=== PATIENT | male | born 1940 | race Caucasian/White ===

== ENCOUNTER → 2018-08-31 13:49 | Outpatient (CLI) | payer MEDICARE, OTHER, SELFPAY ==
--- NOTE | 2018-08-31 | DI.MRI.S_ITS ---
PROCEDURE: MRFOOT LT WO CON INDICATIONS: Lesion of plantar nerve, left lower limb TECHNIQUE: Noncontrast sagittal T1 spin echo and T2 fast spin echo with fat saturation, long-axis T1 spin echo and T2 fast spin echo with fat saturation, short-axis T1 spin echo and T2 fast spin echo with fat saturation through the forefoot. COMPARISON: None. FINDINGS: Image quality: Excellent. Bones and joints: Severe osteoarthritic changes involving second MTP joint with complete loss of joint space, extensive subchondral sclerosis and cyst formation. There is also suggestion of bony erosive changes within the joint suspicious for erosive osteoarthritis. Mild osteoarthritic changes are noted throughout rest of the foot and forefoot joints. No other area of bony erosive changes are seen. The sesamoid bones appear in expected positions, without internal edema. No metatarsophalangeal joint degeneration. No intraosseous lesions. Soft tissues: The visualized plantar foot muscles demonstrate normal signal and bulk. Visualized flexor and extensor tendons appear intact, without tenosynovitis. The distal insertions of the peroneus brevis and longus tendons appear intact. The principal Lisfranc ligament appears intact. No soft tissue ganglion cysts or bursal fluid collections. Sagittal images demonstrate no evidence for plantar plate tears. IMPRESSION: 1. 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 Mild to moderate osteoarthritic changes in rest of mid foot and forefoot. 2. No discrete soft tissue mass or fluid collection. Focal tendons and ligaments are grossly intact. Dictated by: Erasmo Ho M.D. on 08/31/2018 at 15:24 Approved by: Erasmo Ho M.D. on 08/31/2018 at 15:32
== END ==
PROVIDERS: PCP Family Medicine; Visit Provider Family Medicine
DX: G57.62 Lesion of plantar nerve, left lower limb (principal); M19.072 Primary osteoarthritis, left ankle and foot
CPT/HCPCS: 73718

== ENCOUNTER → 2018-10-01 15:39 | Outpatient (CLI) | payer MEDICARE, OTHER, SELFPAY ==
--- NOTE | 2018-10-01 | DI.CT.S_ITS ---
PROCEDURE: CT HEAD/BRAIN WO CON INDICATIONS: DIZZINESS AND GIDDINESS AND DECREASE IN BALANCE TECHNIQUE: Noncontrast 4.5 mm thick angled axial sections acquired from the foramen magnum to the vertex, with coronal and sagittal reformats. For radiation dose reduction, the following was used: automated exposure control, adjustment of mA and/or kV according to patient size. COMPARISON: [facility], CT, HEAD WITHOUT CONTRAST, 05/27/2014, 10:17. FINDINGS: Image quality: Excellent. CSF spaces: Basal cisterns are patent. No extra-axial fluid collections. Ventricles are prominent and have increased in prominence compared to 05/27/2014. Ventriculomegaly could be due to central volume loss versus normal pressure hydrocephalus. Brain: No intracranial bleeds or masses. There is mild cerebral volume loss for age, with resultant ventricular and sulcal prominence. There are severe periventricular and deep white matter chronic small vessel ischemic changes. There is intracranial internal carotid artery and vertebral artery atherosclerosis. Skull and face: Calvarium and visualized facial bones appear intact, without suspicious lesions. Sinuses: Small mucous retention cyst versus polyp noted in the right maxillary sinus. The mastoids are clear. IMPRESSION: 1. Ventriculomegaly which has progressed compared to 05/27/2014. Ventriculomegaly could be secondary to central volume loss versus normal pressure hydrocephalus. Please correlate with clinical findings. 2. 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 3. No abnormal intracranial mass. 4. No intracranial hemorrhage. Dictated by: Jeny Broussard MD, PhD on 10/01/2018 at 17:13 Approved by: Jeny Broussard MD, PhD on 10/01/2018 at 17:18
== END ==
PROVIDERS: PCP Family Medicine; Visit Provider Family Medicine
DX: G93.89 Other specified disorders of brain (principal); R42 Dizziness and giddiness
CPT/HCPCS: 70450

== ENCOUNTER → 2019-07-02 14:44 | Outpatient (CLI) | payer MEDICARE, OTHER, SELFPAY ==
--- NOTE | 2019-07-02 | DI.RAD.S_ITS ---
PROCEDURE: XR LUMBAR SPINE 2-3V INDICATIONS: Ataxic gait/gait disturbance TECHNIQUE: 3 views of the lumbar spine were acquired. COMPARISON: [facility], , -SPINE 2-3 VIEWS, 08/10/2010, 16:20. FINDINGS: Bones: 5 [id number]-nvvmeiz vertebrae are present. There is normal bony alignment. No vertebral body compression fractures. No suspicious bony lesions. There has been progression of degenerative disc disease most pronounced at L34 where near [id number] articulation between the adjacent endplates is present. Soft tissues: Overlying bowel gas pattern is normal. No suspicious soft tissue calcifications. IMPRESSION: Significant interval worsening of degenerative disc disease at L3-4 where it now near [id number] articulation between the adjacent endplates can be seen. A disc herniation may be associated with this interval change in symptomatology reported. Depending on clinical status followup by MR scanning may be warranted. Dictated by: Andres Blackmon M.D. on 07/02/2019 at 15:38 Approved by: Andres Blackmon M.D. on 07/02/2019 at 15:39
== END ==
PROVIDERS: Family Provider Family Medicine; PCP Family Medicine; Visit Provider Family Medicine
DX: R27.0 Ataxia, unspecified (principal); M51.36 Other intervertebral disc degeneration, lumbar region
CPT/HCPCS: 72100

== ENCOUNTER → 2020-12-31 09:16 | Outpatient (CLI) | payer MEDICARE, OTHER, SELFPAY ==
[2020-12-31 10:07] LABS: COVID19 -Nasal RAPID Negative (Negative)
== END ==
PROVIDERS: Family Provider Family Medicine; PCP Family Medicine; Visit Provider Specialist
DX: Z20.822 Contact with and (suspected) exposure to COVID-19 (principal)
CPT/HCPCS: 87635; C9803

== ENCOUNTER 2021-01-01 08:16 | Day surgery (SDC) | payer MEDICARE, OTHER, SELFPAY ==
[2021-01-01] VITALS (9 sets, daily range): BP systolic 140–181; BP diastolic 64–93; PULSE 52–66; RESP 10–20; TEMP 36.1–36.4; O2SAT 98–100; BMI 22.8
[2021-01-01] MEDS: FLEETS ENEMA 1 EACH PR ×6 (09:10→10:31)
--- NOTE | 2021-01-01 09:17 | SUR.PREOP ---
Late entry 0845: Patient states that he did not have any bowel movement until this morning, even after starting his prep as directed yesterday. Output in the toilet is completely brown with some solid material noted. Notified Dr Kumari of situation. Fleets enema ordered.
--- NOTE | 2021-01-01 09:19 | SUR.PREOP ---
After using fleet enema, output still brown with flecks of solid material noted. Second fleet enema attempted by patient.
--- NOTE | 2021-01-01 09:35 | SUR.PREOP ---
Second fleet enema completed. Output still appears brown. This nurse will update Dr Kumari
[2021-01-01] MEDS: LACTATED RINGERS 1,000 ML 200 ML IV (10:00)
--- NOTE | 2021-01-01 10:15 | SUR.PREOP ---
Per Dr Kumari, continue to give fleet enemas until output is yellow. Notified patient of plan and patient is in agreement .
--- NOTE | 2021-01-01 10:37 | SUR.PREOP ---
Fourth enema completed. Tolerated well. Output is dark yellow now and no solid material noted in toilet. Assisted patient back to stretcher and given more warm blankets. Recheck of vital signs. BP 177/77; HR 53.
--- NOTE | 2021-01-01 10:45 | PM.HP.1 ---
History of Present Illness History of Present Illness Date Patient Seen: 01/01/21 Time Patient Seen: 10:45 Chief complaint: SDC Narrative: The patient is a gentleman here for colonoscopy. His last exam was about 15 years ago per his history. Patient History Medical History (Updated 01/01/21 @ 10:46 by Marcin Kumari MD) Essential hypertension with goal blood pressure less than 130/85 Inguinal hernia without obstruction or gangrene Family & Social History Social History: household members spouse Tobacco & Substance use: Smoking Status Never smoker alcohol intake frequency holiday/special occasion Substance Use Type does not use Meds Home Medications and Allergies Home Medications Medication Instructions Recorded Confirmed Type sennosides 8.6 mg tablet 17.2 mg PO DAILY tab 02/12/19 01/01/21 History amlodipine 5 mg PO DAILY 01/01/21 01/01/21 History melatonin 5 mg PO BEDTIME 01/01/21 01/01/21 History psyllium [Metamucil] 1 packet PO TID 01/01/21 01/01/21 History Allergies Allergy/AdvReac Type Severity Reaction Status Date / Time No Known Drug Allergies Allergy Verified 01/01/21 08:33 Review of Systems Review of Systems ROS: Yes All systems reviewed with the patient and are negative except as otherwise documented Exam Vital Signs (past 8 hours): - 01/01/21 08:40 01/01/21 10:39 Temperature 97.6 F Pulse Rate 61 59 L Respiratory Rate 20 12 Blood Pressure 181/78 H 177/77 H Pulse Oximetry 98 98 Oxygen Delivery Method Room Air Narrative Exam Narrative: Pleasant cooperative patient no apparent distress. Lungs are clear to auscultation. No rales or rhonchi. Heart regular rate and rhythm no murmur gallop. Abdomen is soft nontender without mass. No obvious hernias. Patient is alert and oriented x3. Assessment & Plan Assessment & Plan narrative: The patient for a screening colonoscopy. I have discussed the procedure with them. Risks of bleeding, perforation which would necessitate major operation, failure to find remove all lesions, the potential tattoo were all discussed. All questions were answered. They wished to proceed.
--- NOTE | 2021-01-01 10:46 | PM.PREOP ---
Pre-operative Note COVID-19 COVID-19 status: Negative Result date/Date tested (Pos, Neg/Pending): 12/31/20 Interval Note History & Physical reviewed/Exam performed by Physician: Yes Changes to H&P: No ASA Class (for procedural sedation): II
[2021-01-01] MEDS: fentaNYL 250 MCG/5 ML INJ IV (11:08)
[2021-01-01] MEDS: MIDAZOLAM 5 MG/5 ML VIAL IV (11:08)
--- NOTE | 2021-01-01 11:51 | PM.OP.ENDO ---
Operative Date/Time/Diagnoses Date of procedure: 01/01/21 Time of procedure: 11:51 Pre-op diagnosis: Screening examination. Post-op diagnosis: same Procedure & Clinicians Study performed: Colonoscopy Same procedure as scheduled: Yes Indications: Screening examination. Last exam about 15 years ago. Surgeon: Marcin Kumari Procedure Notes SCOAP/Timeout: Performed Procedure in detail: The patient was placed in the left lateral decubitus position and underwent IV sedation directed by the surgeon consisting of fentanyl and Versed. Digital exam was unremarkable.. The scope was inserted and advanced through the rectum into the sigmoid, descending, transverse, and ascending colon. Patient had sigmoid diverticulosis and great deal of tortuosity in that region. The patient was also noted to have a lot of staining of the colon wall presumptively from the use of senna. Stiffener was inserted and the patient was repositioned in order to reach the cecum.. The cecum was reached identified by the ileocecal valve and the appendiceal opening. The ileocecal valve was successfully cannulated. The terminal ileum was normal in appearance. The scope was gradually brought out. No Polyps were found . The scope ultimately was retroflexed in the rectum. The appearance was remarkable for some scarring and old hemorrhoidal disease.. The scope was removed and the patient tolerated the procedure well. The prep was very good. Scope withdrawal time: 9 minutes Sedation minutes: 37 Findings: diverticulosis Specimen(s): none sent Complications: none Post-procedure Recommendations: Other recommendation (Due to your age, it you probably do not need a repeat screening colonoscopy. However, should you develop symptoms a colonoscopy may be indicated in the future.) Follow up: as needed Disposition: PACU
== END 2021-01-01 12:45 | disposition home or self-care (01) ==
PROVIDERS: Family Provider Family Medicine; PCP Family Medicine; Referring Provider Specialist; Visit Provider Specialist
PROC: 0DJD8ZZ Inspection of Lower Intestinal Tract, Via Natural or Artificial Opening Endoscopic (ICD-10-PCS; CPT 45378; principal; 2021-01-01 09:30)
DX: Z12.11 Encounter for screening for malignant neoplasm of colon (principal); K57.30 Diverticulosis of large intestine without perforation or abscess without bleeding; I10 Essential (primary) hypertension
CPT/HCPCS: G0121; 99152; 99153; J2250; J3010

== ENCOUNTER 2024-04-17 10:51 | Day surgery (SDC) | payer MEDICARE, OTHER, SELFPAY ==
[2024-04-15 08:32] VITALS: BMI 22.8
--- NOTE | 2024-04-16 14:44 | P.HP_ITS ---
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 [facility] Medical History Normal pressure hydrocephalus History of herniated intervertebral disc Prostate cancer History of inguinal hernia Bladder incontinence Essential hypertension with goal blood pressure less than 130/85 Inguinal hernia without obstruction or gangrene Surgical History H/O right inguinal hernia repair H/O prostatectomy Social History marital status: household members: spouse lives independently: Yes occupational status: previously employed Smoking Status: Never smoker alcohol intake: current substance use type: does not use Meds Home Medications and Allergies Home Medications Medication Instructions Recorded Confirmed Type amlodipine 5 mg tablet 2.5 mg PO BID 01/01/21 04/17/24 History ascorbic acid (vitamin C) 1,000 mg 500 mg PO DAILY 04/04/24 04/04/24 History tablet docusate sodium PO 04/04/24 04/04/24 History multivitamin PO 04/04/24 History nocturest PO .qhs 04/04/24 History psyllium seed (sugar) oral powder 1 tbsp PO BID 04/04/24 04/04/24 History (Metamucil (sugar) oral powder) Allergies Allergy/AdvReac Type Severity Reaction Status Date / Time No Known Drug Allergies Allergy Verified 04/17/24 13:13 Exam Narrative Exam Narrative: General adult man alert oriented no acute distress Chest nonlabored respiration Abdomen R inguinal hernia marked with my initials Extremities warm well perfused Assessment & Plan Assessment and plan (1) Recurrent right inguinal hernia: Status: Acute Assessment & Plan narrative: 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 Both the anterior and posterior repair approaches have been effected by prior surgeries. Open repair and staying extra peritoneal would reduce the risk of intestinal injury and we will proceed with such, if unable can convert to laparoscopic repair. Open right inguinal hernia repair possible laparoscopic.
[2024-04-17 13:15] VITALS: BMI 22.7
[2024-04-17 13:22] VITALS: BP 159/69; PULSE 54; RESP 16; TEMP 37.3; O2SAT 99
[2024-04-17] MEDS: LACTATED RINGERS 1,000 ML 21 ML IV (13:31)
[2024-04-17] MEDS: BUPIVACAINE 0.25% (PF) VIAL 30 ML INJ (15:09)
[2024-04-17] MEDS: CEFAZOLIN 2 GM/100 ML PREMIX 100 ML IV (15:20)
[2024-04-17 15:37] VITALS: BP 161/87; PULSE 62; RESP 13; TEMP 36.4; O2SAT 92
[2024-04-17 15:42] VITALS: BP 147/77; PULSE 63; RESP 14; O2SAT 100
[2024-04-17 15:47] VITALS: BP 150/77; PULSE 63; RESP 13; O2SAT 100
[2024-04-17 15:52] VITALS: BP 157/78; PULSE 58; RESP 12; O2SAT 100
--- NOTE | 2024-04-17 15:53 | P.OP_ITS ---
Operative Date/Time/Diagnoses Date of procedure: 04/17/24 Time of procedure: 15:53 Pre-op diagnosis: Recurrent right inguinal hernia Post-op diagnosis: same Procedure & Clinicians Procedure: Open repair of recurrent right inguinal hernia Same procedure as scheduled: Yes Indications: 84-year-old man previous anterior right-sided repair and history of prostate cancer status post prostatectomy. Following discussion of the risks benefits alternatives he elects to proceed with a open repair Surgeon: Kenny Brewer Religious Educator: Lm Payton Anesthesia Type: General Operative Notes Findings: Small indirect defect Direct floor defect No prior mesh Specimen(s): none sent Estimated Blood Loss (mL): 20 Procedure in detail: The patient was placed supine on the table and bilateral lower extremity compression devices were applied. Anesthesia was induced they were intubated with an LMA and received Ancef. A time-out was performed. They were prepped and draped in sterile fashion. The right external inguinal ring and the anterior superior iliac crest were identified and marked. 1 finger breath above the inguinal ligament the skin was infiltrated with 0.25% bupivacaine. The skin incision was made, the subcutaneous tissues were divided with electrocautery exposing the external oblique aponeurosis which was then opened along the direction of its fibers. Using blunt dissection the internal oblique aporneurosis was from the external oblique upper leaflet. The cord was carefully dissected away from the inguinal canal adjacent to the pubic tubercle. The cord including the vas deferens, testicular bloody supply, ilioguinal and genital nerve were encircled with a Rafael drain. The cremasteric fibers surrounding the cord were divided adjacent to the internal ring. The vas deferens and the testicular vessels were preserved and protected. The cord contents were carefully explored. There was an indirect hernia which was skeletonized away from the vas deferens and testicular blood supply. The indirect hernia was skeletonized back to the internal ring and reduced sponta neously into the abdomen. A 7x 15 cm lightweight Bard Pro Loop hernia mesh was anchored to the insertion of the rectus muscle at the pubic tubercle such that there was approximately 2 cm of tubercle overlap with Ethibond. The inferior edge of the mesh was secured to the shelving edge of the inguinal ligament using Ethibond. Interrupted 3 0 Vicryl suture was used to anchor the superior aspect of the mesh to the conjoined tendon in several places. The tails were then reapproximated loosely around the spermatic cord. The tails of the mesh were then tucked under the external oblique aponeurosis. The repair was checked for hemostasis. The wound was irrigated with sterile saline. The external oblique aponeurosis was reapproximated in a running fashion using 3 0 Vicryl. The subcutaneous tissues were reapproximated with 3 0 Vicryl skin closed with 4 0 Monocryl followed by the application of Dermabond. At the end of the operation I ensured that both testicles were within the scrotum. The sponge instrument count at the end operation was correct. The patient emerged from anesthesia was extubated and transferred to the postoperative care unit in stable condition. A total of 30 ml of of 0.25% bupivicaine was used to infiltrate the skin. Complications: none Post-operative Condition: stable Disposition: same day surgery
[2024-04-17 16:05] VITALS: BP 119/62; PULSE 57; RESP 14; TEMP 36.4; O2SAT 93
--- NOTE | 2024-04-18 17:38 | PM.CALLCOV.1 ---
Call Coverage Note Note Date of Patient Contact: 04/18/24 Time of Patient Contact: 17:00 Narrative of Care Provided: Spoke to patient over the phone. Patient is POD [address] Brewer and has had hiccups since 0200 today. He states he spoke with Dr. Brewer's office but also wanted to speak to anesthesia. Informed patient that intractable hiccups can occur in some patients post-operatively and that they typically will resolve on their own but can take time. Informed he may try drinking a full glass of water while rhythmically inhaling 2-3 times in between sips and rhythmically exhaling 2-3 times in between sips until the glass of water is finished. Also informed he may ask his to perform a digital rectal massage as there are several case reports indicating this has resolved intractable hiccups. Advised to call our anesthesia department tomorrow if neither of these methods resolved his hiccups.
== END 2024-04-17 16:30 | disposition home or self-care (01) ==
PROVIDERS: Family Provider Family Medicine; PCP Family Medicine; Referring Provider Surgery; Visit Provider Surgery
PROC: (CPT 49520; principal; 2024-04-17 12:30)
DX: K40.91 Unilateral inguinal hernia, without obstruction or gangrene, recurrent (principal)
CPT/HCPCS: 49520; 82962; J0690; J1100; J1170; J2405; J2704

== ENCOUNTER 2024-06-26 13:00 | Outpatient (RCR) | payer MEDICARE, OTHER, SELFPAY ==
--- NOTE | 2024-05-29 14:29 | PT.OIE ---
Current Diagnoses Repeated falls (05/29/24) Past Medical History (Last Reviewed 04/17/24 @ 14:12 by Kenny Brewer MD) Bladder incontinence Essential hypertension with goal blood pressure less than 130/85 History of herniated intervertebral disc History of inguinal hernia Inguinal hernia without obstruction or gangrene Normal pressure hydrocephalus Prostate cancer Past Surgical History (Last Reviewed 04/17/24 @ 14:12 by Kenny Brewer MD) H/O prostatectomy H/O right inguinal hernia repair Visit Care Team Role Provider Type Roger Deras MD Family Provider Physician Primary Care Provider Specialty: Family Practice Address: [address], [address], [place], [address] Email: Conrad Zapata MD Attending Provider Non-Staff Referring Provider Specialty: Neurology Address: [facility] [place], [address] Email: Physical Therapy Initial Evaluation PT-OP-A Visit Information Start: 05/26/24 09:09 Freq: Status: Active Protocol: Document 05/29/24 10:33 MB (Rec: 05/29/24 11:03 [id number]) Out-Patient Physical Therapy Visit Information Visit Information Visit Type Initial Evaluation Visit Note Medicare, [employer] [place] Visit Start Time 10:33 Visit Stop Time 11:13 Visit Number 1 Number of MILK AND CREAM GRADER Visits 0 Evaluation Information Evaluation Date 05/29/24 Precautions Precautions Fall risk PT-OP-B Current Condition Start: 05/26/24 09:09 Freq: Status: Active Protocol: Document 05/29/24 10:33 MB (Rec: 05/29/24 11:03 [id number]) Current Condition History of Current Condition Onset Date 5-6 years ago Current Complaints Memory, word-finding and walking History of Current Condition Pt has a long history of running. 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 He did not want to do that. He had a small stroke and severe GUZMÁN in [employer] 5-6 years ago and he was flown down to [facility] and he was there for 8 days. They did scans. He was told that blood was draining outside of the spinal system and that he had a vein problem. Pt saw Dr. Zapata, neurosurgeon at , a month ago and was told that he wanted him to con't with PT and is not currently recommending shunt when PT asks pt. Pt has a follow-up with Dr. Zapata in a couple of months. Pt states that the last time he did diagnostics was in [place] in 2022 and they confirmed that he has fluid in the head. He might have had a TIA. Pt reports 2-3 falls in 2023. He states that he uses walking poles to walk outside. Pt has trouble with word- finding and recall, cognitive challenges. Prior Treatments and Tests CT head from 2018: IMPRESSION: 1. 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 Ventriculomegaly could be secondary to central volume loss versus normal pressure hydrocephalus. Please correlate with clinical findings. 2. 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 3. No abnormal intracranial mass. 4. No intracranial hemorrhage. Treatment Goals Patient/Caregiver Goals To live a successful life for the rest of his life. PT-OP-C Subjective Start: 05/26/24 09:09 Freq: Status: Active Protocol: Document 05/29/24 10:33 MB (Rec: 05/29/24 14:21 MB [id number]) OP-PT Subjective Patient Comments Patient Comments See history of current condition Patient Questionnaires Other Questionnaire Name and Score PT throws out questionnaires as pt tends to write confidence is high and no concerns for falls despite reporting falls and being very unstable during assessment PT-OP-D Balance Start: 05/26/24 09:09 Freq: Status: Active Protocol: Document 05/29/24 10:33 MB (Rec: 05/29/24 14:21 MB [id number]) Balance Tests Other Other Balance Tests Performed Romberg EO with superv Cannot get into B tandem or SLS positions without LOB and right LE when not weight bearing tends to adduct in front of left leg with gait and static standing PT-OP-G Mobility & Gait Start: 05/26/24 09:09 Freq: Status: Active Protocol: Document 05/29/24 10:33 MB (Rec: 05/29/24 11:03 MB [id number]) OP Gait Assessment Comments Gait Comments Festinating gait with right and then left foot, decreased foot clearance B that is mildly magnetic, narrow TASIA and right foot crosses in front of left foot, very unsteady and slower gait, trouble getting started PT-OP-H Neuro Start: 05/26/24 09:09 Freq: Status: Active Protocol: Document 05/29/24 10:33 MB (Rec: 05/29/24 14:21 MB [id number]) Coordination Evaluation Upper Extremity Tests Left Finger to Nose Test Moderate Impairment Pronation/Supination Test Moderate Impairment Right Finger to Nose Test Minimal Impairment Pronation/Supination Test Minimal Impairment Lower Extremity Tests Left Heel on Benitez Test Minimal Impairment Foot Tapping Test Severe Impairment Right Heel on Benitez Test Minimal Impairment Foot Tapping Test Severe Impairment Comments Coordination Comments For toe tapping testing, pt is sitting and PT cues pt to tap one foot in front to the other side of opposite foot PT-OP-M Strength Start: 05/26/24 09:09 Freq: Status: Active Protocol: Document 05/29/24 10:33 MB (Rec: 05/29/24 14:29 MB [id number]) Shoulder Strength Shoulder Manual Muscle Testing Bilateral Flexion 5 Normal Abduction (C5) 5 Normal Hip Strength Hip Manual Muscle Testing Bilateral Flexion (L2) 5 Normal Knee Strength Knee Manual Muscle Testing Bilateral Flexion (S2) 5 Normal Extension (L3) 5 Normal Ankle/Foot Strength Ankle and Foot Manual Muscle Testing Bilateral Dorsiflexion (L4) 5 Normal Toe Strength Toe Manual Muscle Testing Left Great Toe Extension 4+ Good+ Right Great Toe Extension 4+ Good+ PT-OP-Q Treatments Start: 05/26/24 09:09 Freq: Status: Active Protocol: Document 05/29/24 10:33 MB (Rec: 05/29/24 14:21 MB [id number]) Therapeutic Exercises Sitting Exercises 30 sec STS Comments 14 reps, normal for 84 y/o male Self-Care/Home Management Treatment Education Patient Education Fall Risk,Safety Other Education PT asks pt if he is safe to drive given cognitive challenges and he states that he is, ed in benefits of walking stick when walking outside and that PT may or may not be helpful given his neurological presentation PT-OP-T Assessment and Plan Start: 05/26/24 09:09 Freq: Status: Active Protocol: Document 05/29/24 10:33 MB (Rec: 05/29/24 11:03 MB [id number]) Physical Therapy Assessment Rehab Potential Rehabilitation Potential Fair Evaluation Complexity Number of Personal Factors/Comorbidities 1-2 Number of Body Systems Impaired 3 Clinical Presentation at Evaluation Evolving Impairments Impairments Activity Tolerance,Balance, Coordination,Functional Activities,Functional Mobility ,Gait,Posture,Strength Other Concerns Fall Risk High fall risk Goals 3 Impairment TUG n 15 sec Shelter Goal (LTG) Pt will perform TUG in no more than 10 sec to decrease fall risk. LTG Duration 8 weeks 2 Impairment Decreased gait speed Shelter Goal (LTG) Pt will gait train at least 1300 feet in 6 minutes to improve balance with longer distance gait and community ambulation. LTG Duration 8 weeks 1 Impairment Falls Box Feeder Goal (LTG) Pt will perform WNLs on FGA to decrease fall risk. LTG Duration 8 weeks Assessment Summary Assessment Per pt, he has had a 5-6 year history of hydrocephalus and was told he needed a shunt and PT has access to [address] which reveals 1. 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 Ventriculomegaly could be secondary to central volume loss versus normal pressure hydrocephalus. Please correlate with clinical findings. 2. 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 Pt presents with memory and word-finding challenges and history is not perfectly clear. He reports a possible stroke when at [facility] 5 years ago and that he spent 8 days at [facility] and had a lot of tests done. He reports a possible stroke in [place] last year and he underwent testing and was found to have fluid on the head. PT is able to read referring provider's note, Dr. Zapata. It does not appear that pt has had further brain or CSF testing. Pt presents to PT with moderately severe imbalance with gait with both magnetic and ataxic components with B foot scuffing and right leg occ weaving in front of the left. MMT shoulders and LEs is grossly normal. UE coordination testing presents with mild to moderate dysmetria with rapid supination and pronation and finger to nose, with more changes on the left. B heel to benitez presents with minimal impairment and B toe tapping presents with severe impairment. Pt appears to have poorest motor control distal LEs. TUG requires 15 sec, indicating increased risk for falling and his gait speed is slow. Will perform 6MWT in future treatments to see if his gait pattern improves or worsens with distance. 30 STS is 14 reps, which is good for age. Pt has trouble with all static standing balance and can only reach Romberg successfully. His writing on paperwork is shaky/basal ganglia in nature. He also presents with mandibular tremoring. Pt reports a strong family history of PD. Given 2018 CT report, pt's reports, and pt's presentation today, PT is concerned that further brain imaging or CSF study info is not available. Pt uses walking poles occ outside and while he reports fallling, he does not report fear of falling on pt questionnaires and PT is concerned about pt's insight. He will be driving from [employer] on [address] to [employer] on [address] for PT appointments. It appears that he is performingstretching exercises with his personal security specialist in [place]. Pt will benefit from PT trial to work on functional strengthening, balance and gait. If hydrocephalus/CSF issues are his primary problem, PT will likely not make a huge difference for him. Will con't to monitor 6MWT, Funcitonal Gait Assessment (FGA) and Timed Up and Go (TUG) to see if he is progressing. If he does not progress with PT, recommend return to neurology for further medical work-up. Cognitive challenges/safety awarenss may be a barrier to PT. PT is concerned that pt is driving. Physical Therapy Plan Frequency and Duration Frequency of Treatment 1-2x/wk trial Duration of treatment (weeks) 8 Plan of Care Start Date 05/29/24 Plan of Care End Date 07/29/24 Therapeutic Interventions Therapeutic Interventions Balance Training,Canalithic Repositioning,Coordination Training,Gait Training,Home Exercise Program,Joint Mobilizations,Manual Therapy, Neuromuscular Re-education, Patient/Caregiver Education, Self-Care/Home Management, Sensory Integration,Soft Tissue Mobilization,Taping, Therapeutic Activities, Therapeutic Exercises, Vestibular Rehabilitation Modalities Cold Pack/Ice Massage,Hot Packs Next Visit Focus/Plan Next Note Type Treatment Note Next Visit Plan FGA and 6MWT Con't to check TUG, FGA and 6MWT frequently to see if pt is progressing Ongoing balance work, functional activities such as STS from various surfaces, check stair training, AD training
--- NOTE | 2024-06-03 08:16 | PT.OTN ---
Current Diagnoses Repeated falls (06/03/24) Physical Therapy Treatment Note PT-OP-A Visit Information Start: 05/26/24 09:09 Freq: Status: Active Protocol: Document 06/03/24 07:35 MB (Rec: 06/03/24 08:13 MB [id number]) Out-Patient Physical Therapy Visit Information Visit Information Visit Type Treatment Note Visit Note Medicare, [employer] Visit Start Time 07:35 Visit Stop Time 08:15 Visit Number 2 Number of PROCUREMENT PROFESSIONAL LOGISTICS Visits 0 Evaluation Information Evaluation Date 05/29/24 Precautions Precautions Fall risk PT-OP-B Current Condition Start: 05/26/24 09:09 Freq: Status: Active Protocol: Document 05/29/24 10:33 MB (Rec: 05/29/24 11:03 MB [id number]) Current Condition History of Current Condition Onset Date 5-6 years ago Current Complaints Memory, word-finding and walking History of Current Condition Pt has a long history of running. 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 He did not want to do that. He had a small stroke and severe GUZMÁN in [employer] 5-6 years ago and he was flown down to [facility] and he was there for 8 days. They did scans. He was told that blood was draining outside of the spinal system and that he had a vein problem. Pt saw Dr. Zapata, neurosurgeon at , a month ago and was told that he wanted him to con't with PT and is not currently recommending shunt when PT asks pt. Pt has a follow-up with Dr. Zapata in a couple of months. Pt states that the last time he did diagnostics was in [place] in 2022 and they confirmed that he has fluid in the head. He might have had a TIA. Pt reports 2-3 falls in 2023. He states that he uses walking poles to walk outside. Pt has trouble with word- finding and recall, cognitive challenges. Prior Treatments and Tests CT head from 2018: IMPRESSION: 1. 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 Ventriculomegaly could be secondary to central volume loss versus normal pressure hydrocephalus. Please correlate with clinical findings. 2. 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 3. No abnormal intracranial mass. 4. No intracranial hemorrhage. Treatment Goals Patient/Caregiver Goals To live a successful life for the rest of his life. PT-OP-C Subjective Start: 05/26/24 09:09 Freq: Status: Active Protocol: Document 06/03/24 07:35 MB (Rec: 06/03/24 08:13 MB [id number]) OP-PT Subjective Patient Comments Patient Comments Pt has no new complaints. He is using trekking poles at [facility] in [place]. PT-OP-D Balance Start: 05/26/24 09:09 Freq: Status: Active Protocol: Document 05/29/24 10:33 MB (Rec: 05/29/24 14:21 MB [id number]) Balance Tests Other Other Balance Tests Performed Romberg EO with superv Cannot get into B tandem or SLS positions without LOB and right LE when not weight bearing tends to adduct in front of left leg with gait and static standing PT-OP-G Mobility & Gait Start: 05/26/24 09:09 Freq: Status: Active Protocol: Document 05/29/24 10:33 MB (Rec: 05/29/24 11:03 MB [id number]) OP Gait Assessment Comments Gait Comments Festinating gait with right and then left foot, decreased foot clearance B that is mildly magnetic, narrow TASIA and right foot crosses in front of left foot, very unsteady and slower gait, trouble getting started PT-OP-H Neuro Start: 05/26/24 09:09 Freq: Status: Active Protocol: Document 05/29/24 10:33 MB (Rec: 05/29/24 14:21 MB [id number]) Coordination Evaluation Upper Extremity Tests Left Finger to Nose Test Moderate Impairment Pronation/Supination Test Moderate Impairment Right Finger to Nose Test Minimal Impairment Pronation/Supination Test Minimal Impairment Lower Extremity Tests Left Heel on Benitez Test Minimal Impairment Foot Tapping Test Severe Impairment Right Heel on Benitez Test Minimal Impairment Foot Tapping Test Severe Impairment Comments Coordination Comments For toe tapping testing, pt is sitting and PT cues pt to tap one foot in front to the other side of opposite foot PT-OP-M Strength Start: 05/26/24 09:09 Freq: Status: Active Protocol: Document 05/29/24 10:33 MB (Rec: 05/29/24 14:29 MB [id number]) Shoulder Strength Shoulder Manual Muscle Testing Bilateral Flexion 5 Normal Abduction (C5) 5 Normal Hip Strength Hip Manual Muscle Testing Bilateral Flexion (L2) 5 Normal Knee Strength Knee Manual Muscle Testing Bilateral Flexion (S2) 5 Normal Extension (L3) 5 Normal Ankle/Foot Strength Ankle and Foot Manual Muscle Testing Bilateral Dorsiflexion (L4) 5 Normal Toe Strength Toe Manual Muscle Testing Left Great Toe Extension 4+ Good+ Right Great Toe Extension 4+ Good+ PT-OP-Q Treatments Start: 05/26/24 09:09 Freq: Status: Active Protocol: Document 06/03/24 07:35 MB (Rec: 06/03/24 08:13 MB [id number]) Cardio Equipment Recumbent Elliptical ([employer]) Duration (Minutes) 10 Resistance 8 Therapeutic Exercises Sitting Exercises Ankle DF and eversion Side bilateral Resistance Level 2 band Comments Cues to keep hands on knees, up to 30 reps, ongoing cues Gait Training Gait Activity Gait with trekking poles Comments Pt may bring in his own poles next visit. He tends to advance with same leg or let poles drag behind and feet do not clear better but his jero is faster and is appears more confident with gait 6MWT Comments No AD and evidence of weakness in distal LEs: PT does not clear either foot for any step for the entire 1383 feet gait . He has reduced arm swing B and keeps arms flexed and close to his body. He appears to be dragging feet on lateral and forefoot areas of his feet: constant scuffing every step PT-OP-T Assessment and Plan Start: 05/26/24 09:09 Freq: Status: Active Protocol: Document 06/03/24 07:35 MB (Rec: 06/03/24 08:13 MB [id number]) Physical Therapy Assessment Rehab Potential Rehabilitation Potential Fair Evaluation Complexity Number of Personal Factors/Comorbidities 1-2 Number of Body Systems Impaired 3 Clinical Presentation at Evaluation Evolving Impairments Impairments Activity Tolerance,Balance, Coordination,Functional Activities,Functional Mobility ,Gait,Posture,Strength Other Concerns Fall Risk High fall risk Goals 3 Impairment TUG n 15 sec Jail Goal (LTG) Pt will perform TUG in no more than 10 sec to decrease fall risk. LTG Duration 8 weeks 2 Impairment Decreased gait speed Facility Maintenance Mechanic Goal (LTG) Pt will gait train at least 1300 feet in 6 minutes to improve balance with longer distance gait and community ambulation. LTG Duration 8 weeks 1 Impairment Falls Jail Goal (LTG) Pt will perform WNLs on FGA to decrease fall risk. LTG Duration 8 weeks Assessment Summary Assessment 6MWT reveals neither foot clearing throughout entire gait time and it appears to stay about the same today. Added exercise for ankle DF and evertors today and pt has trouble following commands and so unsure how HEP performance will go. Pt has history of lumbar surgery and states that it went well. PT feels that peripheral weakness is neurological appearing in nature. Physical Therapy Plan Frequency and Duration Frequency of Treatment 1-2x/wk trial Duration of treatment (weeks) 8 Plan of Care Start Date 05/29/24 Plan of Care End Date 07/29/24 Therapeutic Interventions Therapeutic Interventions Balance Training,Canalithic Repositioning,Coordination Training,Gait Training,Home Exercise Program,Joint Mobilizations,Manual Therapy, Neuromuscular Re-education, Patient/Caregiver Education, Self-Care/Home Management, Sensory Integration,Soft Tissue Mobilization,Taping, Therapeutic Activities, Therapeutic Exercises, Vestibular Rehabilitation Modalities Cold Pack/Ice Massage,Hot Packs Next Visit Focus/Plan Next Note Type Treatment Note Next Visit Plan Can warm-up BioDex, then FGA Con't to check TUG, FGA and 6MWT frequently to see if pt is progressing Ongoing balance work, functional activities such as STS from various surfaces, check stair training, AD training: consider [place] exercises for pt
--- NOTE | 2024-06-07 11:15 | PT.OTN ---
Current Diagnoses Repeated falls (06/07/24) Physical Therapy Treatment Note PT-OP-A Visit Information Start: 05/26/24 09:09 Freq: Status: Active Protocol: Document 06/07/24 10:35 SP (Rec: 06/07/24 11:19 SP [id number]) Out-Patient Physical Therapy Visit Information Visit Information Visit Type Treatment Note Visit Note Medicare, [employer] [place] 01/06 post eval Visit Start Time 10:35 Visit Stop Time 11:15 Visit Number 3 Number of FORENSIC TOXICOLOGIST Visits 1 Evaluation Information Evaluation Date 05/29/24 Precautions Precautions Fall risk PT-OP-B Current Condition Start: 05/26/24 09:09 Freq: Status: Active Protocol: Document 05/29/24 10:33 MB (Rec: 05/29/24 11:03 MB [id number]) Current Condition History of Current Condition Onset Date 5-6 years ago Current Complaints Memory, word-finding and walking History of Current Condition Pt has a long history of running. 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 He did not want to do that. He had a small stroke and severe GUZMÁN in [employer] 5-6 years ago and he was flown down to [facility] and he was there for 8 days. They did scans. He was told that blood was draining outside of the spinal system and that he had a vein problem. Pt saw Dr. Zapata, neurosurgeon at , a month ago and was told that he wanted him to con't with PT and is not currently recommending shunt when PT asks pt. Pt has a follow-up with Dr. Zapata in a couple of months. Pt states that the last time he did diagnostics was in [place] in 2022 and they confirmed that he has fluid in the head. He might have had a TIA. Pt reports 2-3 falls in 2023. He states that he uses walking poles to walk outside. Pt has trouble with word- finding and recall, cognitive challenges. Prior Treatments and Tests CT head from 2018: IMPRESSION: 1. 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 Ventriculomegaly could be secondary to central volume loss versus normal pressure hydrocephalus. Please correlate with clinical findings. 2. 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 3. No abnormal intracranial mass. 4. No intracranial hemorrhage. Treatment Goals Patient/Caregiver Goals To live a successful life for the rest of his life. PT-OP-C Subjective Start: 05/26/24 09:09 Freq: Status: Active Protocol: Document 06/07/24 10:35 SP (Rec: 06/07/24 11:19 SP [id number]) OP-PT Subjective Patient Comments Patient Comments He is using trekking poles at [facility] in [place] about 2miles 5x/wk. He sees Ilya ( it trainer in [facility]). He reports needs cuing review for proper form ankle exercises, has decreased memory recall. PT-OP-D Balance Start: 05/26/24 09:09 Freq: Status: Active Protocol: Document 05/29/24 10:33 MB (Rec: 05/29/24 14:21 MB [id number]) Balance Tests Other Other Balance Tests Performed Romberg EO with superv Cannot get into B tandem or SLS positions without LOB and right LE when not weight bearing tends to adduct in front of left leg with gait and static standing PT-OP-E Functional Tests Start: 06/07/24 11:01 Freq: Status: Active Protocol: Document 06/07/24 10:35 SP (Rec: 06/07/24 12:12 SP [id number]) Functional Tests Functional Gait Assessment Score 18/30 Functional Gait Assessment Impairment 1 to <20% Impaired (Score 25- Rating 29) PT-OP-G Mobility & Gait Start: 05/26/24 09:09 Freq: Status: Active Protocol: Document 05/29/24 10:33 MB (Rec: 05/29/24 11:03 MB [id number]) OP Gait Assessment Comments Gait Comments Festinating gait with right and then left foot, decreased foot clearance B that is mildly magnetic, narrow TASIA and right foot crosses in front of left foot, very unsteady and slower gait, trouble getting started PT-OP-H Neuro Start: 05/26/24 09:09 Freq: Status: Active Protocol: Document 05/29/24 10:33 MB (Rec: 05/29/24 14:21 MB [id number]) Coordination Evaluation Upper Extremity Tests Left Finger to Nose Test Moderate Impairment Pronation/Supination Test Moderate Impairment Right Finger to Nose Test Minimal Impairment Pronation/Supination Test Minimal Impairment Lower Extremity Tests Left Heel on Benitez Test Minimal Impairment Foot Tapping Test Severe Impairment Right Heel on Benitez Test Minimal Impairment Foot Tapping Test Severe Impairment Comments Coordination Comments For toe tapping testing, pt is sitting and PT cues pt to tap one foot in front to the other side of opposite foot PT-OP-M Strength Start: 05/26/24 09:09 Freq: Status: Active Protocol: Document 05/29/24 10:33 MB (Rec: 05/29/24 14:29 MB [id number]) Shoulder Strength Shoulder Manual Muscle Testing Bilateral Flexion 5 Normal Abduction (C5) 5 Normal Hip Strength Hip Manual Muscle Testing Bilateral Flexion (L2) 5 Normal Knee Strength Knee Manual Muscle Testing Bilateral Flexion (S2) 5 Normal Extension (L3) 5 Normal Ankle/Foot Strength Ankle and Foot Manual Muscle Testing Bilateral Dorsiflexion (L4) 5 Normal Toe Strength Toe Manual Muscle Testing Left Great Toe Extension 4+ Good+ Right Great Toe Extension 4+ Good+ PT-OP-Q Treatments Start: 05/26/24 09:09 Freq: Status: Active Protocol: Document 06/07/24 10:35 SP (Rec: 06/07/24 11:19 SP [id number]) Cardio Equipment Recumbent Stepper (Sci-Fit) Duration (Minutes) 8 Resistance 2.5 Seat Position 12 Other BUEs/BLEs 54 RPMs, 1.02 miles Therapeutic Exercises Sitting Exercises Ankle DF and eversion Sitting Exercise Name HEP reviewed Side bilateral Resistance Level 2 band Reps/Minutes 30 reps Comments Cues to keep hands on knees midline stab, ongoing cues assist counting Neuro Re-Education Treatment Balance Activities FGA Details Baseline 06/07/24 Comments Self-Care/Home Management Treatment Education Patient Education Home Exercise Program,Posture, Safety Other Education Time spent discussion of LSVT BIG and becoming more BIGGER motions and self aware for making changes. Aggressive program in and outside PT for progression need be agreeable to performing. Is helpful to have family willing to support him if can, pt states would be helpful for spouse to joing him in some tx to help cue him if needed. PT-OP-T Assessment and Plan Start: 05/26/24 09:09 Freq: Status: Active Protocol: Document 06/07/24 10:35 SP (Rec: 06/07/24 11:19 SP [id number]) Physical Therapy Assessment Goals 3 Impairment TUG n 15 sec [facility] Goal (LTG) Pt will perform TUG in no more than 10 sec to decrease fall risk. LTG Duration 8 weeks 2 Impairment Decreased gait speed Va Underwriter Goal (LTG) Pt will gait train at least 1300 feet in 6 minutes to improve balance with longer distance gait and community ambulation. 06/03/24: 1383 ft no AD (last tx with PT)- Does not clear each foot entire distance, reduced arm swing B and keeps arms flexed and close to his body, appears to be dragging feet on lateral and forefoot areas of his feet: constant scuffing every step. LTG Duration 8 weeks 1 Impairment Falls [facility] Underwriter Goal (LTG) Pt will perform WNLs on FGA to decrease fall risk. 06/07/24: FGA Fall risk. LTG Duration 8 weeks baseline 06/07/24 Assessment Summary Assessment Pt requires cuing for set up and proper form for ankle strengthening ex with TB. Cues for increased audible counting support more vocal BIG voice. Time spent answering questions about LSVT BIG and support bigger motions, feedback on voice during counting, functional activities and self awareness of his motions and positioning to change mobility. Pt demonstrated decreased stability during dynamic head turns, stepping over objects, need for use HR stairs and delay in mobility speed changes FGA baseline testing, pt agreed properly scored and wants to make a change and get better with balance. Will continue to progress pt in strength and funcitonal strengthening in PT . Physical Therapy Plan Frequency and Duration Frequency of Treatment 1-2x/wk trial Duration of treatment (weeks) 8 Plan of Care Start Date 05/29/24 Plan of Care End Date 07/29/24 Therapeutic Interventions Therapeutic Interventions Balance Training,Canalithic Repositioning,Coordination Training,Gait Training,Home Exercise Program,Joint Mobilizations,Manual Therapy, Neuromuscular Re-education, Patient/Caregiver Education, Self-Care/Home Management, Sensory Integration,Soft Tissue Mobilization,Taping, Therapeutic Activities, Therapeutic Exercises, Vestibular Rehabilitation Modalities Cold Pack/Ice Massage,Hot Packs Next Visit Focus/Plan Next Note Type Treatment Note Next Visit Plan Can warm-up BioDex, Con't to check TUG, FGA and 6MWT frequently to see if pt is progressing Ongoing balance work, functional activities such as STS from various surfaces, check stair training, AD training: consider [place] exercises for pt
--- NOTE | 2024-06-11 11:00 | PT-OP ANOTE ---
Pt arrives 20 minutes late to appointment and so appointment canceled.
--- NOTE | 2024-06-13 11:18 | PT.OTN ---
Current Diagnoses Repeated falls (06/13/24) Physical Therapy Treatment Note PT-OP-A Visit Information Start: 05/26/24 09:09 Freq: Status: Active Protocol: Document 06/13/24 10:32 SP (Rec: 06/13/24 11:45 SP [id number]) Out-Patient Physical Therapy Visit Information Visit Information Visit Type Treatment Note Visit Note Medicare, [place] 01/06 post eval Visit Start Time 10:32 Visit Stop Time 11:18 Visit Number 4 Number of CAN LABELER Visits 2 Evaluation Information Evaluation Date 05/29/24 Precautions Precautions Fall risk PT-OP-B Current Condition Start: 05/26/24 09:09 Freq: Status: Active Protocol: Document 05/29/24 10:33 MB (Rec: 05/29/24 11:03 MB [id number]) Current Condition History of Current Condition Onset Date 5-6 years ago Current Complaints Memory, word-finding and walking History of Current Condition Pt has a long history of running. 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 He did not want to do that. He had a small stroke and severe GUZMÁN in [employer] gym 5-6 years ago and he was flown down to [facility] and he was there for 8 days. They did scans. He was told that blood was draining outside of the spinal system and that he had a vein problem. Pt saw Dr. Zapata, neurosurgeon at , a month ago and was told that he wanted him to con't with PT and is not currently recommending shunt when PT asks pt. Pt has a follow-up with Dr. Zapata in a couple of months. Pt states that the last time he did diagnostics was in [place] in 2022 and they confirmed that he has fluid in the head. He might have had a TIA. Pt reports 2-3 falls in 2023. He states that he uses walking poles to walk outside. Pt has trouble with word- finding and recall, cognitive challenges. Prior Treatments and Tests CT head from 2018: IMPRESSION: 1. 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 Ventriculomegaly could be secondary to central volume loss versus normal pressure hydrocephalus. Please correlate with clinical findings. 2. 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 3. No abnormal intracranial mass. 4. No intracranial hemorrhage. Treatment Goals Patient/Caregiver Goals To live a successful life for the rest of his life. PT-OP-C Subjective Start: 05/26/24 09:09 Freq: Status: Active Protocol: Document 06/13/24 10:32 SP (Rec: 06/13/24 11:45 SP [id number]) OP-PT Subjective Patient Comments Patient Comments Pt reports got here early last tx and sat in trunk listening to his book on tape and accidently feel asleep then realized was 20 min late for appt so was cancelled. Is walking 5x/wk at [facility] usign 1 trek pole. 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 Pt wants activities can do at home for progression and if anything suggest link trainer operator Ilya can also with with him for reinforcement. PT-OP-D Balance Start: 05/26/24 09:09 Freq: Status: Active Protocol: Document 05/29/24 10:33 MB (Rec: 05/29/24 14:21 MB [id number]) Balance Tests Other Other Balance Tests Performed Romberg EO with superv Cannot get into B tandem or SLS positions without LOB and right LE when not weight bearing tends to adduct in front of left leg with gait and static standing PT-OP-E Functional Tests Start: 06/07/24 11:01 Freq: Status: Active Protocol: Document 06/07/24 10:35 SP (Rec: 06/07/24 12:12 SP [id number]) Functional Tests Functional Gait Assessment Score 18/30 Functional Gait Assessment Impairment 1 to <20% Impaired (Score 25- Rating 29) PT-OP-G Mobility & Gait Start: 05/26/24 09:09 Freq: Status: Active Protocol: Document 05/29/24 10:33 MB (Rec: 05/29/24 11:03 MB [id number]) OP Gait Assessment Comments Gait Comments Festinating gait with right and then left foot, decreased foot clearance B that is mildly magnetic, narrow TASIA and right foot crosses in front of left foot, very unsteady and slower gait, trouble getting started PT-OP-H Neuro Start: 05/26/24 09:09 Freq: Status: Active Protocol: Document 05/29/24 10:33 MB (Rec: 05/29/24 14:21 MB [id number]) Coordination Evaluation Upper Extremity Tests Left Finger to Nose Test Moderate Impairment Pronation/Supination Test Moderate Impairment Right Finger to Nose Test Minimal Impairment Pronation/Supination Test Minimal Impairment Lower Extremity Tests Left Heel on Benitez Test Minimal Impairment Foot Tapping Test Severe Impairment Right Heel on Benitez Test Minimal Impairment Foot Tapping Test Severe Impairment Comments Coordination Comments For toe tapping testing, pt is sitting and PT cues pt to tap one foot in front to the other side of opposite foot PT-OP-M Strength Start: 05/26/24 09:09 Freq: Status: Active Protocol: Document 05/29/24 10:33 MB (Rec: 05/29/24 14:29 MB [id number]) Shoulder Strength Shoulder Manual Muscle Testing Bilateral Flexion 5 Normal Abduction (C5) 5 Normal Hip Strength Hip Manual Muscle Testing Bilateral Flexion (L2) 5 Normal Knee Strength Knee Manual Muscle Testing Bilateral Flexion (S2) 5 Normal Extension (L3) 5 Normal Ankle/Foot Strength Ankle and Foot Manual Muscle Testing Bilateral Dorsiflexion (L4) 5 Normal Toe Strength Toe Manual Muscle Testing Left Great Toe Extension 4+ Good+ Right Great Toe Extension 4+ Good+ PT-OP-Q Treatments Start: 05/26/24 09:09 Freq: Status: Active Protocol: Document 06/13/24 10:32 SP (Rec: 06/13/24 11:45 SP [id number]) Cardio Equipment Recumbent Elliptical (Biodex) Other unavailable Recumbent Stepper (Sci-Fit) Duration (Minutes) 8 Resistance 2.5 Seat Position 12 Other BUEs/BLEs 60-62 RPMs, 1.23 miles Therapeutic Exercises Sitting Exercises sit stand Sitting Exercise Name added to HEP Equipment Used mesh chair Reps/Minutes 10 reps Ankle DF and eversion Sitting Exercise Name HEP reviewed and provided HO Side bilateral Resistance Level 2>3 mohegan band Reps/Minutes 30 reps Comments Cues to keep hands on knees midline stab, ongoing cues assist counting Therapeutic Activity Therapeutic Activity transfers Name proper positioning: pivot, back up Comments pivot front, step back fully feel chair behind knees then HIP HINGE slow eccentric sit. Improved with reps less momentum and no UE support. sit stands various surfaces Name in PT Reps/Minutes 2 reps each surface Comments mesh chair, Lrg chair, 24 box , 16 box, 12 box: no UE support but cues/ed scoot fwd, hip hinge fwd able to ascend with less mo momentum and slow eccentric descend sit . Gait Training Gait Activity Gait with trekking poles Description fwd and head turns Device Used 1 trek pole in RUE (90 deg elbow height) Level of Assistance S fwd, CGA/close SBA (head turns) Distance/Duration multiple laps hallway Treatment Focus patterning trek pole, stride, foot clearance, posture Comments Asked pt bring his trek poles next tx. Improved patternign with LLE, tends to not advance trek pole enough front, lessening with distance/drag behind and feet do not clear better but his jero is faster and is appears more confident with gait after 3 laps. Ed cues for trek pole positioning little more fwd of L foot and allow R shld /c trek pole swing fwd placement. Neuro Re-Education Treatment Balance Activities TUG Details more future visits Self-Care/Home Management Treatment Education Patient Education Home Exercise Program,Posture, Safety Other Education Time spent education during STS COG over TASIA, no retro lean/keep toes down and form slow descend for safety. Height of trek pole allow success advancement clearnace and RUE arm swing to support advancement. Added HEP with HOs: ankle DF& EV increased Lvl 3 and STS mechanics. PT-OP-T Assessment and Plan Start: 05/26/24 09:09 Freq: Status: Active Protocol: Document 06/13/24 10:32 SP (Rec: 06/13/24 11:45 SP [id number]) Physical Therapy Assessment Goals 3 Impairment TUG n 15 sec [facility] Goal (LTG) Pt will perform TUG in no more than 10 sec to decrease fall risk. LTG Duration 8 weeks 2 Impairment Decreased gait speed [facility] Goal (LTG) Pt will gait train at least 1300 feet in 6 minutes to improve balance with longer distance gait and community ambulation. 06/03/24: 1383 ft no AD (last tx with PT)- Does not clear each foot entire distance, reduced arm swing B and keeps arms flexed and close to his body, appears to be dragging feet on lateral and forefoot areas of his feet: constant scuffing every step. LTG Duration 8 weeks 1 Impairment Falls [facility] Goal (LTG) Pt will perform WNLs on FGA to decrease fall risk. 06/07/24: FGA 18/30 Fall risk. LTG Duration 8 weeks baseline 06/07/24 Assessment Summary Assessment Tx focused on HEP with handouts per patient request wants carryover for home, improved set up and form with ankle DF/EV when switched 2nd foot occasional cue . Sit stands better COG over TASIA forefoot down with Min to occasional cues, tends to retro rock coming to standing and eccentric sit with cues for hip hinge slower descend to sit, noted less momentum and able complete on various lower surfaces with repetitions no UE support. Education trek pole height and positioning little more advanced while patterning with LLE, improved clearance. Cues throughout tx for taller posture gait between chair surfaces. Physical Therapy Plan Frequency and Duration Frequency of Treatment 1-2x/wk trial Duration of treatment (weeks) 8 Plan of Care Start Date 05/29/24 Plan of Care End Date 07/29/24 Therapeutic Interventions Therapeutic Interventions Balance Training,Canalithic Repositioning,Coordination Training,Gait Training,Home Exercise Program,Joint Mobilizations,Manual Therapy, Neuromuscular Re-education, Patient/Caregiver Education, Self-Care/Home Management, Sensory Integration,Soft Tissue Mobilization,Taping, Therapeutic Activities, Therapeutic Exercises, Vestibular Rehabilitation Modalities Cold Pack/Ice Massage,Hot Packs Next Visit Focus/Plan Next Note Type Treatment Note Next Visit Plan Can warm-up BioDex, Con't to check TUG, FGA and 6MWT frequently to see if pt is progressing Ongoing balance work, functional activities such as STS from various surfaces, check stair training, AD training: consider [place] exercises for pt
--- NOTE | 2024-06-19 13:50 | PT.OTN ---
Current Diagnoses Repeated falls (06/19/24) Physical Therapy Treatment Note PT-OP-A Visit Information Start: 05/26/24 09:09 Freq: Status: Active Protocol: Document 06/19/24 13:05 SP (Rec: 06/19/24 13:52 SP [id number]) Out-Patient Physical Therapy Visit Information Visit Information Visit Type Treatment Note Visit Note Medicare, [employer] [place] 02/06 post eval Visit Start Time 13:05 Visit Stop Time 13:50 Visit Number 5 Number of ACADEMIC SUPPORT SPECIALIST Visits 3 Evaluation Information Evaluation Date 05/29/24 Precautions Precautions Fall risk PT-OP-B Current Condition Start: 05/26/24 09:09 Freq: Status: Active Protocol: Document 05/29/24 10:33 MB (Rec: 05/29/24 11:03 MB [id number]) Current Condition History of Current Condition Onset Date 5-6 years ago Current Complaints Memory, word-finding and walking History of Current Condition Pt has a long history of running. 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 He did not want to do that. He had a small stroke and severe GUZMÁN in [employer] gym 5-6 years ago and he was flown down to [facility] and he was there for 8 days. They did scans. He was told that blood was draining outside of the spinal system and that he had a vein problem. Pt saw Dr. Zapata, neurosurgeon at , a month ago and was told that he wanted him to con't with PT and is not currently recommending shunt when PT asks pt. Pt has a follow-up with Dr. Zapata in a couple of months. Pt states that the last time he did diagnostics was in [place] in 2022 and they confirmed that he has fluid in the head. He might have had a TIA. Pt reports 2-3 falls in 2023. He states that he uses walking poles to walk outside. Pt has trouble with word- finding and recall, cognitive challenges. Prior Treatments and Tests CT head from 2018: IMPRESSION: 1. 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 Ventriculomegaly could be secondary to central volume loss versus normal pressure hydrocephalus. Please correlate with clinical findings. 2. 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 3. No abnormal intracranial mass. 4. No intracranial hemorrhage. Treatment Goals Patient/Caregiver Goals To live a successful life for the rest of his life. PT-OP-C Subjective Start: 05/26/24 09:09 Freq: Status: Active Protocol: Document 06/19/24 13:05 SP (Rec: 06/19/24 13:52 SP [id number]) OP-PT Subjective Patient Comments Patient Comments Pt reports still walking [employer] /c B trek poles. He arrives trunk flexion, decreased foot clearance waiting room to gym. States compliant with HEP. PT-OP-D Balance Start: 05/26/24 09:09 Freq: Status: Active Protocol: Document 05/29/24 10:33 MB (Rec: 05/29/24 14:21 MB [id number]) Balance Tests Other Other Balance Tests Performed Romberg EO with superv Cannot get into B tandem or SLS positions without LOB and right LE when not weight bearing tends to adduct in front of left leg with gait and static standing PT-OP-E Functional Tests Start: 06/07/24 11:01 Freq: Status: Active Protocol: Document 06/19/24 13:05 SP (Rec: 06/19/24 13:52 SP [id number]) Functional Tests Timed Up and Go (TUG) Score 12, 14, 15 sec Comments cued upright posture increase TASIA and stride, back up fully before sit c TUG Impairment Rating 40 to <60% Impaired (Score 14- 15) PT-OP-G Mobility & Gait Start: 05/26/24 09:09 Freq: Status: Active Protocol: Document 05/29/24 10:33 MB (Rec: 05/29/24 11:03 MB [id number]) OP Gait Assessment Comments Gait Comments Festinating gait with right and then left foot, decreased foot clearance B that is mildly magnetic, narrow TASIA and right foot crosses in front of left foot, very unsteady and slower gait, trouble getting started PT-OP-H Neuro Start: 05/26/24 09:09 Freq: Status: Active Protocol: Document 05/29/24 10:33 MB (Rec: 05/29/24 14:21 MB [id number]) Coordination Evaluation Upper Extremity Tests Left Finger to Nose Test Moderate Impairment Pronation/Supination Test Moderate Impairment Right Finger to Nose Test Minimal Impairment Pronation/Supination Test Minimal Impairment Lower Extremity Tests Left Heel on Benitez Test Minimal Impairment Foot Tapping Test Severe Impairment Right Heel on Benitez Test Minimal Impairment Foot Tapping Test Severe Impairment Comments Coordination Comments For toe tapping testing, pt is sitting and PT cues pt to tap one foot in front to the other side of opposite foot PT-OP-M Strength Start: 05/26/24 09:09 Freq: Status: Active Protocol: Document 05/29/24 10:33 MB (Rec: 05/29/24 14:29 MB [id number]) Shoulder Strength Shoulder Manual Muscle Testing Bilateral Flexion 5 Normal Abduction (C5) 5 Normal Hip Strength Hip Manual Muscle Testing Bilateral Flexion (L2) 5 Normal Knee Strength Knee Manual Muscle Testing Bilateral Flexion (S2) 5 Normal Extension (L3) 5 Normal Ankle/Foot Strength Ankle and Foot Manual Muscle Testing Bilateral Dorsiflexion (L4) 5 Normal Toe Strength Toe Manual Muscle Testing Left Great Toe Extension 4+ Good+ Right Great Toe Extension 4+ Good+ PT-OP-Q Treatments Start: 05/26/24 09:09 Freq: Status: Active Protocol: Document 06/19/24 13:05 SP (Rec: 06/19/24 13:52 SP [id number]) Cardio Equipment Recumbent Elliptical (ServiceNow) Duration (Minutes) 10 Resistance 8 Seat Position 8 (RPMs 30 LEs only, 35-40 BUEs&BLEs)- 795 steps Other LEs only 3 min, UE&LEs 5 min, LEs 1 min, BUE&LE 1 min Therapeutic Exercises Sitting Exercises Ankle DF and eversion Sitting Exercise Name HEP has HO Side bilateral Resistance Level 3 unga band Equipment Used small ball between knees keep near each other Reps/Minutes 30 reps Comments Cues to keep heels down stationary 30 sec STS Reps/Minutes 18 sec (increase 4 sec) x2 from eval Comments initial retrolean fell back into chair. Standing Exercises Hip Flexor stretch Standing Exercise Name lunge stance- trialed Equipment Used rail Reps/Minutes 30 SH Comments cued tall posture back leg allow heel come up, wt shift pelvis fwd Gait Training Gait Activity 6MWT Level of Assistance close SBA Distance/Duration 1217 Comments No AD and evidence of weakness in distal LEs: P does not clear either foot for any step for the entire less feet gait by 166 ft this tx 06/19. He has minimal arm swing B and keeps arms flexed at side and close to his body. He appears to be dragging feet on lateral and forefoot areas of his feet: constant scuffing every step and fwd lean, Intermittent cues for upright posture and heel toe increased stride heels strike for safety. Neuro Re-Education Treatment Balance Activities TUG Reps/Duration 12 reps, 14 sec, 15 sec. Comments 1st: scissor step and over sway, tipped over cone going around, no full step back to sit end flop into chair 2nd: little sway initially, adin 3rd: better step back but hard land into chair and slow around cone but march step clearance. PT-OP-T Assessment and Plan Start: 05/26/24 09:09 Freq: Status: Active Protocol: Document 06/19/24 13:05 SP (Rec: 06/19/24 13:52 SP [id number]) Physical Therapy Assessment Goals 3 Impairment TUG n 15 sec Aircraft Armorer Goal (LTG) Pt will perform TUG in no more than 10 sec to decrease fall risk. 06/19/24:PRogressin-15 sec . 40-60% impaired. LTG Duration 8 weeks PRogressing 06/19/24 2 Impairment Decreased gait speed Long-Term Goal (LTG) Pt will gait train at least 1300 feet in 6 minutes to improve balance with longer distance gait and community ambulation. 06/03/24: 1383 ft no AD (last tx with PT)- Does not clear each foot entire distance, reduced arm swing B and keeps arms flexed and close to his body, appears to be dragging feet on lateral and forefoot areas of his feet: constant scuffing every step. LTG Duration 8 weeks 1 Impairment Falls Long-Term Goal (LTG) Pt will perform WNLs on FGA to decrease fall risk. 06/07/24: FGA 18/30 Fall risk. LTG Duration 8 weeks baseline 06/07/24 Assessment Summary Assessment Pt more flexed posture during gait no UE support recheck 6MWT, cued for taller posturing and foot clearance heel toe, noted reduction in distance by 166 ft (1217ft ) and little longer to complete 5xSTS with noted 1 retro LOB coming to standing, compared to previous tx. Initiated resisted DF /c EV for strength foot clearance support during gait. Pt improves quality stabilityduring TUG but little longer time to complete safely with better understanding fully step back and hip hinge sit more controlled for safety this tx. Pt would benifit from continued work ok functional mobility with posture. Continue address hip flexor tightness. Physical Therapy Plan Frequency and Duration Frequency of Treatment 1-2x/wk trial Duration of treatment (weeks) 8 Plan of Care Start Date 05/29/24 Plan of Care End Date 07/29/24 Therapeutic Interventions Therapeutic Interventions Balance Training,Canalithic Repositioning,Coordination Training,Gait Training,Home Exercise Program,Joint Mobilizations,Manual Therapy, Neuromuscular Re-education, Patient/Caregiver Education, Self-Care/Home Management, Sensory Integration,Soft Tissue Mobilization,Taping, Therapeutic Activities, Therapeutic Exercises, Vestibular Rehabilitation Modalities Cold Pack/Ice Massage,Hot Packs Next Visit Focus/Plan Next Note Type Treatment Note Next Visit Plan Can warm-up BioDex, Address hip flexor tightness, trial lunge rail vs doorway. Con't to check TUG, FGA and 6MWT frequently to see if pt is progressing Ongoing balance work, functional activities such as STS from various surfaces, check stair training, AD training: consider [place] exercises for pt
--- NOTE | 2024-06-26 14:01 | PT.OTN ---
Current Diagnoses Repeated falls (06/26/24) Physical Therapy Treatment Note PT-OP-A Visit Information Start: 05/26/24 09:09 Freq: Status: Active Protocol: Document 06/26/24 13:03 MB (Rec: 06/26/24 13:46 MB [id number]) Out-Patient Physical Therapy Visit Information Visit Information Visit Type Progress Note Visit Note Medicare, [employer] Visit Start Time 13:03 Visit Stop Time 13:43 Visit Number 6 Number of TRANSACTION MANAGER Visits 0 Evaluation Information Evaluation Date 05/29/24 Precautions Precautions Fall risk PT-OP-B Current Condition Start: 05/26/24 09:09 Freq: Status: Active Protocol: Document 05/29/24 10:33 MB (Rec: 05/29/24 11:03 MB [id number]) Current Condition History of Current Condition Onset Date 5-6 years ago Current Complaints Memory, word-finding and walking History of Current Condition Pt has a long history of running. 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 He did not want to do that. He had a small stroke and severe GUZMÁN in [employer] gym 5-6 years ago and he was flown down to [facility] and he was there for 8 days. They did scans. He was told that blood was draining outside of the spinal system and that he had a vein problem. Pt saw Dr. Zapata, neurosurgeon at , a month ago and was told that he wanted him to con't with PT and is not currently recommending shunt when PT asks pt. Pt has a follow-up with Dr. Zapata in a couple of months. Pt states that the last time he did diagnostics was in [place] in 2022 and they confirmed that he has fluid in the head. He might have had a TIA. Pt reports 2-3 falls in 2023. He states that he uses walking poles to walk outside. Pt has trouble with word- finding and recall, cognitive challenges. Prior Treatments and Tests CT head from 2018: IMPRESSION: 1. 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 Ventriculomegaly could be secondary to central volume loss versus normal pressure hydrocephalus. Please correlate with clinical findings. 2. 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 3. No abnormal intracranial mass. 4. No intracranial hemorrhage. Treatment Goals Patient/Caregiver Goals To live a successful life for the rest of his life. PT-OP-C Subjective Start: 05/26/24 09:09 Freq: Status: Active Protocol: Document 06/26/24 13:03 MB (Rec: 06/26/24 13:46 MB [id number]) OP-PT Subjective Patient Comments Patient Comments Pt states that he has not had any falls but he has to be careful. [place] there was no place to sit down or rest. He still sees his employment trainer once a week and does stretches. Pt has only been doing ankle strengthening from PT exercises. Pt has not done any cognitive testing. PT-OP-D Balance Start: 05/26/24 09:09 Freq: Status: Active Protocol: Document 05/29/24 10:33 MB (Rec: 05/29/24 14:21 MB [id number]) Balance Tests Other Other Balance Tests Performed Romberg EO with superv Cannot get into B tandem or SLS positions without LOB and right LE when not weight bearing tends to adduct in front of left leg with gait and static standing PT-OP-E Functional Tests Start: 06/07/24 11:01 Freq: Status: Active Protocol: Document 06/19/24 13:05 SP (Rec: 06/19/24 13:52 SP [id number]) Functional Tests Timed Up and Go (TUG) Score 12, 14, 15 sec Comments cued upright posture increase TASIA and stride, back up fully before sit c TUG Impairment Rating 40 to <60% Impaired (Score 14- 15) PT-OP-G Mobility & Gait Start: 05/26/24 09:09 Freq: Status: Active Protocol: Document 05/29/24 10:33 MB (Rec: 05/29/24 11:03 MB [id number]) OP Gait Assessment Comments Gait Comments Festinating gait with right and then left foot, decreased foot clearance B that is mildly magnetic, narrow TASIA and right foot crosses in front of left foot, very unsteady and slower gait, trouble getting started PT-OP-H Neuro Start: 05/26/24 09:09 Freq: Status: Active Protocol: Document 05/29/24 10:33 MB (Rec: 05/29/24 14:21 MB [id number]) Coordination Evaluation Upper Extremity Tests Left Finger to Nose Test Moderate Impairment Pronation/Supination Test Moderate Impairment Right Finger to Nose Test Minimal Impairment Pronation/Supination Test Minimal Impairment Lower Extremity Tests Left Heel on Benitez Test Minimal Impairment Foot Tapping Test Severe Impairment Right Heel on Benitez Test Minimal Impairment Foot Tapping Test Severe Impairment Comments Coordination Comments For toe tapping testing, pt is sitting and PT cues pt to tap one foot in front to the other side of opposite foot PT-OP-M Strength Start: 05/26/24 09:09 Freq: Status: Active Protocol: Document 05/29/24 10:33 MB (Rec: 05/29/24 14:29 MB [id number]) Shoulder Strength Shoulder Manual Muscle Testing Bilateral Flexion 5 Normal Abduction (C5) 5 Normal Hip Strength Hip Manual Muscle Testing Bilateral Flexion (L2) 5 Normal Knee Strength Knee Manual Muscle Testing Bilateral Flexion (S2) 5 Normal Extension (L3) 5 Normal Ankle/Foot Strength Ankle and Foot Manual Muscle Testing Bilateral Dorsiflexion (L4) 5 Normal Toe Strength Toe Manual Muscle Testing Left Great Toe Extension 4+ Good+ Right Great Toe Extension 4+ Good+ PT-OP-Q Treatments Start: 05/26/24 09:09 Freq: Status: Active Protocol: Document 06/26/24 13:03 MB (Rec: 06/26/24 14:01 MB [id number]) Gait Training Gait Activity 6MWT Comments Performed today and see comments under goals Neuro Re-Education Treatment Balance Activities TUG Comments Performed today and see comments under goals FGA Comments Performed today and see comments under goals Self-Care/Home Management Treatment Education Patient Education Fall Risk,Safety Other Education Extensive discussion about findings, no improvements with PT, challenges in remembering and ability to perform exercises at home, PT further recommendations for movements specialist neurologist assessment and treatment as needed, rule out spine and return to neurosurgeon as appropriate, con't with use of hiking sticks for gait outside, follow-up with cognitive testing PT-OP-T Assessment and Plan Start: 05/26/24 09:09 Freq: Status: Active Protocol: Document 06/26/24 13:03 MB (Rec: 06/26/24 13:46 MB [id number]) Physical Therapy Assessment Goals 3 Impairment TUG in 15 sec Phone Technician Goal (LTG) Pt will perform TUG in no more than 10 sec to decrease fall risk. 06/19/24:PRogressin-15 sec . 40-60% impaired. 06/26/24: TUG in 12 sec and pt with LOB when returning to sitting and he flops into chair rather than backing to fully to chair and sitting safely LTG Duration Small progress 2 Impairment Decreased gait speed Assisted Goal (LTG) Pt will gait train at least 1300 feet in 6 minutes to improve balance with longer distance gait and community ambulation. 06/03/24: 1383 ft no AD (last tx with PT)- Does not clear each foot entire distance, reduced arm swing B and keeps arms flexed and close to his body, appears to be dragging feet on lateral and forefoot areas of his feet: constant scuffing every step. 06/26/24: Pt gait trains 1309 feet in 6 minutes, walking clockwise. After one minute of gait, pt starts to scuff both feet most steps. Occ, there is a slap from forefoot of both feet but most often, scuffing is left greater than right foot and appears to be on the lateral side of feet. Decreased arm swing and arms drawn up at sides with elbows flexed at sides. Occ increased list to right side and wall with gait. Pt requires CGA for all of gait. LTG Duration Met as of first attempt and plateaued, see gait quality comments 1 Impairment Falls Assisted Goal (LTG) Pt will perform WNLs on FGA to decrease fall risk. 06/07/24: FGA 18/30 Fall risk. 06/26/24: FGA score is 7/18, indicating increased risk for falling. PT does not feel that pt is doing worse but that scoring varied between providers. No improvement in balance. LTG Duration Not improved Assessment Summary Assessment Performed SLUMS today and score is 22 and pt may benefit from having more rigorous cognitive testing as he reports trouble with memory and has trouble understanding and performing HEP provided by and reviewed by PT over several treatments. Overall, pt has been unable to demonstrate recall and progress over PT treatments. PT favors underlying neurological presentation affecting balance, gait, motor control and cognition. Recommend movement specialist neurologist assessment, ruling out lumbar spine as well as more formalized cognitive testing. Overall, his gait has ataxic, occasional magnetic and occasional festinating components. Will d/c OPPT and pt to con't with walking sticks for walking outside.
== END 2024-07-02 13:51 | disposition home or self-care (01) ==
LOC: PHYS 13:00
PROVIDERS: Family Provider Family Medicine; PCP Family Medicine; Referring Provider Psychiatry & Neurology Neurology; Visit Provider Psychiatry & Neurology Neurology
DX: R29.6 Repeated falls (principal)
CPT/HCPCS: 97110; 97112; 97116; 97162; 97530; 97535